=== PATIENT | male | born 1975 | race Caucasian/White ===

== ENCOUNTER 2018-06-05 11:52 | Emergency (ER) | payer OTHER ==
--- NOTE | 2018-06-05 14:15 | EDPHYS ---
Physician Documentation [facility] Name: Shawn Calderon Age: 43 yrs Sex: Male : 1975 Arrival Date: 06/05/2018 Time: 11:53 Bed 30 Private MD: Lito Mathur T ED Physician Adam Yang HPI: 06/05 14:11 This 43 yrs old Male presents to ER via Ambulatory with complaints of KIDNEY sandee STONE. 14:11 The patient complains of pain in the left mid back and right mid back. The pain does sandee not radiate. Onset: The symptoms/episode began/occurred 2 month(s) ago. Modifying factors: The symptoms are alleviated by nothing. the symptoms are aggravated by nothing. Modifying factors: The symptoms are alleviated by. Associated signs and symptoms: The patient has no apparent associated signs or symptoms. Severity of pain: At its worst the pain was moderate in the emergency department the pain has improved moderately. The patient has not experienced similar symptoms in the past. Historical: - Allergies: 12:06 No Known Allergies; hb - Home Meds: 12:06 None [Active]; hb - PMHx: 12:06 None; hb - PSHx: 12:06 Shoulder - RIGHT; hb - Immunization history:: Adult Immunizations up to date. - Social history:: Smoking status: Patient/guardian denies using tobacco, never smoked. - Ebola Screening: : No symptoms or risks identified at this time. - Family history:: not pertinent. ROS: 14:11 Constitutional: Negative for fever, chills, and weight loss, Eyes: Negative for injury, sandee pain, redness, and discharge, ENT: Negative for injury, pain, and discharge, Neck: Negative for injury, pain, and swelling, Cardiovascular: Negative for chest pain, palpitations, and edema, Respiratory: Negative for shortness of breath, cough, wheezing, and pleuritic chest pain, Abdomen/GI: Negative for abdominal pain, nausea, vomiting, diarrhea, and constipation, : Negative for injury, bleeding, discharge, and swelling, MS/Extremity: Negative for injury and deformity, Skin: Negative for injury, rash, and discoloration, Neuro: Negative for headache, weakness, numbness, tingling, and seizure, Psych: Negative for depression, anxiety, suicide ideation, homicidal ideation, and hallucinations, Allergy/Immunology: Negative for hives, rash, and allergies, Endocrine: Negative for neck swelling, polydipsia, polyuria, polyphagia, and marked weight changes, Hematologic/Lymphatic: Negative for swollen nodes, abnormal bleeding, and unusual bruising. 14:11 Back: Positive for pain at rest, flank pain, bilaterally. Exam: 14:11 Constitutional: This is a well developed, well nourished patient who is awake, alert, sandee and in no acute distress. Head/Face: Normocephalic, atraumatic. Eyes: Pupils equal round and reactive to light, extra-ocular motions intact. Lids and lashes normal. Conjunctiva and sclera are non-icteric and not injected. Cornea within normal limits. Periorbital areas with no swelling, redness, or edema. ENT: Nares patent. No nasal discharge, no septal abnormalities noted. Tympanic membranes are normal and external auditory canals are clear. Oropharynx with no redness, swelling, or masses, exudates, or evidence of obstruction, uvula midline. Mucous membranes moist. Neck: Trachea midline, no thyromegaly or masses palpated, and no cervical lymphadenopathy. Supple, full range of motion without nuchal rigidity, or vertebral point tenderness. No Meningismus. Chest/axilla: Normal chest wall appearance and motion. Nontender with no deformity. No lesions are appreciated. Cardiovascular: Regular rate and rhythm with a normal S1 and S2. No gallops, murmurs, or rubs. Normal PMI, no JVD. No pulse deficits. Respiratory: Lungs have equal breath sounds bilaterally, clear to auscultation and percussion. No rales, rhonchi or wheezes noted. No increased work of breathing, no retractions or nasal flaring. Abdomen/GI: Soft, non-tender, with normal bowel sounds. No distension or tympany. No guarding or rebound. No evidence of tenderness throughout. Male : Normal genitalia with no discharge or lesions. Skin: Warm, dry with normal turgor. Normal color with no rashes, no lesions, and no evidence of cellulitis. MS/ Extremity: Pulses equal, no cyanosis. Neurovascular intact. Full, normal range of motion. Neuro: Awake and alert, GCS 15, oriented to person, place, time, and situation. Cranial nerves II-XII grossly intact. Motor strength 5/5 in all extremities. Sensory grossly intact. Cerebellar exam normal. Normal gait. Psych: Awake, alert, with orientation to person, place and time. Behavior, mood, and affect are within normal limits. 14:11 Back: pain, that is moderate, ROM is painful, normal spinal alignment noted, CVA tenderness, is absent, vertebral tenderness, is not appreciated. Vital Signs: 12:06 BP 160 / 98; Pulse 85; Resp 16; Temp 98.2; Pulse Ox 100% on R/A; Weight 120.2 kg; hb Height 6 ft. 3 in. (190.50 cm); Pain 4/10; 13:39 BP 155 / 118 RA Sitting (auto/reg); Pulse 76; Temp 98.8(O); Pulse Ox 96% on R/A; Pain jp3 4/10; 14:27 BP 171 / 111; Pulse 84; Resp 16; Pulse Ox 99% on R/A; Pain 3/10; em 12:06 Body Mass Index 33.12 (120.20 kg, 190.50 cm) hb 13:39 4/10 pain level was after pain medication was given. Pt report 10/10 on pain prior to jp3 pain medication. MDM: 13:38 Patient medically screened. sandee 14:11 Data reviewed: vital signs, nurses notes. sandee Administered Medications: No medications were administered Disposition: 06/05/18 14:14 Discharged to Home. Impression: Hydronephrosis with renal and ureteral calculous obstruction - bilateral, intermittant , Essential (primary) hypertension. - Condition is Stable. - Discharge Instructions: Hypertension, Kidney Stones, Kidney Stones, [id number], Hydronephrosis, Hypertension, [id number]-[id number], Dietary Guidelines to Help Prevent Kidney Stones. - Prescriptions for Flomax 0.4 mg Oral Capsule, Sust. Release 24 hr - take 1 capsule by ORAL route once daily 1/2 hour following the same meal each day; 30 capsule. - Medication Reconciliation Form, Thank You Letter, Antibiotic Education, Prescription Opioid Use form. - Follow up: Lito Mathur MD; When: 1 - 2 days; Reason: Recheck today's complaints, Continuance of care, Re-evaluation by your physician. Follow up: Camelia Elder MD; When: Tomorrow; Reason: Recheck today's complaints, Continuance of care, Re-evaluation by your physician. - Problem is new. - Symptoms have improved. Signatures: Adam Yang MD MD sandee Bryce Landeros, PRICE CHANGER PRICE CHANGER em Zayda Jean, RN RN Corrections: (The following items were deleted from the chart) 14:15 14:14 06/05/2018 14:14 Discharged to Home. Impression: Hydronephrosis with renal and sandee ureteral calculous obstruction - bilateral, intermittant . Condition is Stable. Forms are Medication Reconciliation Form, Thank You Letter, Antibiotic Education, Prescription Opioid Use. Follow up: Lito Mathur; When: 1 - 2 days; Reason: Recheck today's complaints, Continuance of care, Re-evaluation by your physician. Follow up: Camelia Elder; When: Tomorrow; Reason: Recheck today's complaints, Continuance of care, Re-evaluation by your physician. Problem is new. Symptoms have improved. sandee 14:30 14:15 06/05/2018 14:14 Discharged to Home. Impression: Hydronephrosis with renal and em ureteral calculous obstruction - bilateral, intermittant ; Essential (primary) hypertension. Condition is Stable. Discharge Instructions: Kidney Stones, Kidney Stones, [id number], Hydronephrosis, Dietary Guidelines to Help Prevent Kidney Stones. Prescriptions for Flomax 0.4 mg Oral Capsule, Sust. Release 24 hr - take 1 capsule by ORAL route once daily 1/2 hour following the same meal each day; 30 capsule. and Forms are Medication Reconciliation Form, Thank You Letter, Antibiotic Education, Prescription Opioid Use. Follow up: Lito Mathur; When: 1 - 2 days; Reason: Recheck today's complaints, Continuance of care, Re-evaluation by your physician. Follow up: Camelia Elder; When: Tomorrow; Reason: Recheck today's complaints, Continuance of care, Re-evaluation by your physician. Problem is new. Symptoms have improved. sandee
--- NOTE | 2018-06-05 14:15 | ER ---
Nurse's Notes [facility] Name: Shawn Calderon Age: 43 yrs Sex: Male : 1975 Arrival Date: 06/05/2018 Time: 11:53 Bed 30 Private MD: Lito Mathur T Diagnosis: Hydronephrosis with renal and ureteral calculous obstruction-bilateral, intermittant ;Essential (primary) hypertension Presentation: 06/05 12:03 Presenting complaint: Patient states: "Dr. Mathur sent me for a CT and found I have hb kidney stones, referred me to Dr. Elder but he does not take my insurance, so he said to meet him at the ED at noon today.". Transition of care: patient was not received from another setting of care. Onset of symptoms was June 05, 2018. Risk Assessment: Do you want to hurt yourself or someone else? Patient reports no desire to harm self or others. Initial Sepsis Screen: Does the patient meet any 2 criteria? No. Patient's initial sepsis screen is negative. Does the patient have a suspected source of infection? No. Patient's initial sepsis screen is negative. Care prior to arrival: None. 12:03 Method Of Arrival: Ambulatory hb 12:03 Acuity: ANTONIETA 3 hb Historical: - Allergies: 12:06 No Known Allergies; hb - Home Meds: 12:06 None [Active]; hb - PMHx: 12:06 None; hb - PSHx: 12:06 Shoulder - RIGHT; hb - Immunization history:: Adult Immunizations up to date. - Social history:: Smoking status: Patient/guardian denies using tobacco, never smoked. - Ebola Screening: : No symptoms or risks identified at this time. - Family history:: not pertinent. Screenin:54 Abuse screen: Denies threats or abuse. Nutritional screening: No deficits noted. em Tuberculosis screening: No symptoms or risk factors identified. Fall Risk None identified. Assessment: 13:50 General: Appears uncomfortable, Behavior is cooperative, agitated, Denies fever, has em had flank pain for several months, upset because he they won't take his insurance, was told to come to the ER and Dr. Elder would see him in the ER. Pain: Complains of pain in posterior aspect of left lateral abdomen Pain currently is 3 out of 10 on a pain scale. Neuro: Level of Consciousness is awake, alert, obeys commands, Oriented to person, place, time, situation. Cardiovascular: Capillary refill < 3 seconds Patient's skin is warm and dry. Respiratory: Airway is patent Respiratory effort is even, unlabored, Respiratory pattern is regular, symmetrical. GI: Abdomen is flat, Patient currently denies nausea, vomiting. : Reports hematuria last week, denies hematuria today. EENT: No signs and/or symptoms were reported regarding the EENT system. Derm: Skin is intact, Skin is pink, warm \\T\\ dry. Musculoskeletal: Range of motion: intact in all extremities. 14:00 General: The previous assessment is accurate, call light remains within reach. . ss Vital Signs: 12:06 BP 160 / 98; Pulse 85; Resp 16; Temp 98.2; Pulse Ox 100% on R/A; Weight 120.2 kg; hb Height 6 ft. 3 in. (190.50 cm); Pain 4/10; 13:39 BP 155 / 118 RA Sitting (auto/reg); Pulse 76; Temp 98.8(O); Pulse Ox 96% on R/A; Pain jp3 4/10; 14:27 BP 171 / 111; Pulse 84; Resp 16; Pulse Ox 99% on R/A; Pain 3/10; em 12:06 Body Mass Index 33.12 (120.20 kg, 190.50 cm) hb 13:39 4/10 pain level was after pain medication was given. Pt report 10/10 on pain prior to jp3 pain medication. ED Course: 11:53 Patient arrived in ED. sb2 11:54 Lito Mathur MD is Private Physician. sb2 12:05 Triage completed. hb 12:06 Arm band placed on left wrist. hb 13:38 Adam Yang MD is Attending Physician. sandee 13:49 Bryce Landeros LVN is Primary Nurse. em 13:54 Patient has correct armband on for positive identification. Bed in low position. Call em light in reach. 13:54 No provider procedures requiring assistance completed. em 14:13 Lito Mathur MD is Referral Physician. sandee 14:14 Camelia Elder MD is Referral Physician. sandee 14:28 Patient did not have IV access during this emergency room visit. em Administered Medications: No medications were administered Outcome: 14:14 Discharge ordered by . sandee 14:28 Discharged to home ambulatory. em 14:28 Condition: good 14:28 Discharge instructions given to patient, Instructed on discharge instructions, follow up and referral plans. medication usage, Demonstrated understanding of instructions, follow-up care, medications, Prescriptions given X 1. 14:30 Patient left the ED. em Signatures: Adam Yang MD MD cha Munoz, Bryce, DRUM BUILDER DRUM BUILDER em Tatyana Gilbert RN RN ss Zayda Jean RN RN Ragini Kincaid sb2 Anmol Brown jp3
== END 2018-06-05 14:30 | disposition home or self-care (01) ==
LOC: ER 11:52
DX: N13.2 Hydronephrosis with renal and ureteral calculous obstruction (principal); I10 Essential (primary) hypertension
CPT/HCPCS: 99282

== ENCOUNTER 2018-06-06 05:54 | Day surgery (SDC) | payer OTHER ==
[2018-06-06 06:24] LABS: Absolute Lymphocytes (CBC) 2.7 K/uL (0.7-4.9); Absolute Monocytes 0.4 K/uL (0.1-1.3); Basophils % 0.4 % (0-1.3); Eosinophils % 4.8 % (0-4.4); Hematocrit 50.6 % (39.6-49.0); Lymphocytes % 36.1 % (15.3-44.8); MCH 29.2 pg (27.0-35.0); MCV 86.5 fL (80-100); MPV 8.9 fL (7.6-11.3); Monocytes % 5.7 % (3.3-12.3); RBC Red Blood Cell Count 5.85 M/uL (4.33-5.43)
[2018-06-06 06:37] LABS: Potassium 3.8 mmol/L (3.5-5.1)
--- NOTE | 2018-06-06 08:15 | EDPHYS ---
Physician Documentation [facility] Name: Shawn Calderon Age: 43 yrs Sex: Male : 1975 Arrival Date: 06/06/2018 Time: 06:00 Bed 6 Private MD: ED Physician Ben Presley HPI: 06/06 06:14 This 43 yrs old Male presents to ER via Ambulatory with complaints of surgery.snw 06:14 Onset: The symptoms/episode began/occurred 4 day(s) ago, and became persistent. snw Associated signs and symptoms: Pertinent positives: seen in ED yesterday for consult with Dr. Elder. Modifying factors: The patient symptoms are alleviated by nothing. It is unknown whether or not the patient has had similar symptoms in the past. The patient has been recently seen by a physician: Pt saw Dr. Mathur who dx renal and calculus of ureter. Right intrarenal stone is intermittently obstructive. Pt came to ED for consult with Dr. Elder. Sent for surgery for today. No orders or labs so pt signed up in ED. Labs entered and pt awaiting OR. Historical: - Allergies: 06:11 Neosporin ([id number]); lp1 - Home Meds: 06:11 None [Active]; lp1 - PMHx: 06:11 None; lp1 - PSHx: 06:11 Rotator Cuff repair; lp1 - Immunization history:: Adult Immunizations up to date. - Social history:: Smoking status: Patient/guardian denies using tobacco. - Ebola Screening: : No symptoms or risks identified at this time. ROS: 06:14 Constitutional: Negative for fever, chills, and weight loss, Eyes: Negative for injury, snw pain, redness, and discharge, ENT: Negative for injury, pain, and discharge, Neck: Negative for injury, pain, and swelling, Cardiovascular: Negative for chest pain, palpitations, and edema, Respiratory: Negative for shortness of breath, cough, wheezing, and pleuritic chest pain, Abdomen/GI: Negative for abdominal pain, nausea, vomiting, diarrhea, and constipation, : Negative for injury, bleeding, discharge, and swelling, MS/Extremity: Negative for injury and deformity, Skin: Negative for injury, rash, and discoloration, Neuro: Negative for headache, weakness, numbness, tingling, and seizure. 06:14 Back: Positive for flank pain. Exam: 06:14 Constitutional: This is a well developed, well nourished patient who is awake, alert, snw and in no acute distress. Head/Face: Normocephalic, atraumatic. Eyes: Pupils equal round and reactive to light, extra-ocular motions intact. Lids and lashes normal. Conjunctiva and sclera are non-icteric and not injected. Cornea within normal limits. Periorbital areas with no swelling, redness, or edema. ENT: Nares patent. No nasal discharge, no septal abnormalities noted. Tympanic membranes are normal and external auditory canals are clear. Oropharynx with no redness, swelling, or masses, exudates, or evidence of obstruction, uvula midline. Mucous membranes moist. Neck: Trachea midline, no thyromegaly or masses palpated, and no cervical lymphadenopathy. Supple, full range of motion without nuchal rigidity, or vertebral point tenderness. No Meningismus. Chest/axilla: Normal chest wall appearance and motion. Nontender with no deformity. No lesions are appreciated. Cardiovascular: Regular rate and rhythm with a normal S1 and S2. No gallops, murmurs, or rubs. Normal PMI, no JVD. No pulse deficits. Respiratory: Lungs have equal breath sounds bilaterally, clear to auscultation and percussion. No rales, rhonchi or wheezes noted. No increased work of breathing, no retractions or nasal flaring. Abdomen/GI: Soft, non-tender, with normal bowel sounds. No distension or tympany. No guarding or rebound. No evidence of tenderness throughout. Back: No spinal tenderness. No costovertebral tenderness. Full range of motion. Skin: Warm, dry with normal turgor. Normal color with no rashes, no lesions, and no evidence of cellulitis. MS/ Extremity: Pulses equal, no cyanosis. Neurovascular intact. Full, normal range of motion. Neuro: Awake and alert, GCS 15, oriented to person, place, time, and situation. Cranial nerves II-XII grossly intact. Motor strength 5/5 in all extremities. Sensory grossly intact. Cerebellar exam normal. Normal gait. Vital Signs: 06:13 BP 149 / 99; Pulse 82; Resp 18; Temp 98.0(O); Pulse Ox 96% on R/A; Weight 117.93 kg; lp1 Height 6 ft. 3 in. (190.50 cm); Pain 0/10; 07:41 BP 141 / 98; Pulse 82; Resp 17; Pulse Ox 96% on R/A; tw2 09:56 BP 136 / 97; Pulse 73; Resp 17; Pulse Ox 96% on R/A; tw2 06:13 Body Mass Index 32.50 (117.93 kg, 190.50 cm) lp1 MDM: 06:12 Patient medically screened. snw 08:14 Data reviewed: vital signs, nurses notes. Data interpreted: Pulse oximetry: on room air snw is 96 %. Interpretation: acceptable. Counseling: I had a detailed discussion with the patient and/or guardian regarding: the historical points, exam findings, and any diagnostic results supporting the discharge/admit diagnosis, the presence of at least one elevated blood pressure reading (>120/80) during this emergency department visit. Physician consultation: Camelia Elder MD was called at 05:45, was contacted at 05:45, regarding patient's condition, need to evaluate the patient as soon as possible. 06/06 06:03 Order name: Type And Screen; Complete Time: 07:35 bb 06/06 06:03 Order name: CBC with Diff; Complete Time: 07:02 bb 06/06 06:03 Order name: BMP; Complete Time: 06:41 bb 06/06 08:51 Order name: ABO/RH no charge; Complete Time: 08:55 EDMS 06/06 08:57 Order name: PT-INR; Complete Time: 09:55 sv 06/06 08:57 Order name: Ptt, Activated; Complete Time: 09:55 sv 06/06 06:03 Order name: EKG; Complete Time: 06:04 bb 06/06 06:03 Order name: EKG - Nurse/Tech; Complete Time: 06:26 bb 06/06 06:03 Order name: XRAY Chest (1 view); Complete Time: 09:05 bb 06/06 06:03 Order name: NPO; Complete Time: 06:14 bb 06/06 08:56 Order name: Abdomen 1 View (KUB) XRAY snw 06/06 08:57 Order name: UA MICROSCOPIC sv 06/06 09:47 Order name: Urine Dipstick--Ancillary (enter results) em1 Administered Medications: No medications were administered Disposition: 06/06/18 08:14 Hospitalization ordered by Camelia Elder for Observation. Preliminary diagnosis is Hydronephrosis with renal and ureteral calculous obstruction. - Bed requested for Operating Room. - Status is Observation. tw2 - Condition is Stable. - Problem is an acute exacerbation. - Symptoms are unchanged. UTI on Admission? No Signatures: Dispatcher [employer] EDMS Shanta Long, FAST FOODS WORKER-C FAST FOODS WORKER-Csnw Luna Cronin, RN RN bb Sanna Avila RN RN lp1 Mahsa Patel RN RN tw2 Corrections: (The following items were deleted from the chart) 09:57 08:14 Hospitalization Ordered by Camelia Elder MD for Observation. Preliminary tw2 diagnosis is Hydronephrosis with renal and ureteral calculous obstruction. Bed requested for Operating Room. Status is Observation. Condition is Stable. Problem is an acute exacerbation. Symptoms are unchanged. UTI on Admission? No. snw
--- NOTE | 2018-06-06 08:15 | ER ---
Nurse's Notes [facility] Name: Shawn Calderon Age: 43 yrs Sex: Male : 1975 Arrival Date: 06/06/2018 Time: 06:00 Bed 6 Private MD: Diagnosis: Hydronephrosis with renal and ureteral calculous obstruction Presentation: 06/06 06:08 Presenting complaint: Patient states: Scheduled for surgery this morning with Dr. Elder lp1 for lithotripsy; Told to come to ER for labs prior to surgery. Transition of care: patient was not received from another setting of care. Onset of symptoms was June 06, 2018. Risk Assessment: Do you want to hurt yourself or someone else? Patient reports no desire to harm self or others. Initial Sepsis Screen: Does the patient meet any 2 criteria? No. Patient's initial sepsis screen is negative. Does the patient have a suspected source of infection? No. Patient's initial sepsis screen is negative. Care prior to arrival: None. 06:08 Method Of Arrival: Ambulatory lp1 06:08 Acuity: ANTONIETA 3 lp1 Historical: - Allergies: 06:11 Neosporin ([id number]); lp1 - Home Meds: 06:11 None [Active]; lp1 - PMHx: 06:11 None; lp1 - PSHx: 06:11 Rotator Cuff repair; lp1 - Immunization history:: Adult Immunizations up to date. - Social history:: Smoking status: Patient/guardian denies using tobacco. - Ebola Screening: : No symptoms or risks identified at this time. Screenin:13 Abuse screen: Denies threats or abuse. Denies injuries from another. Nutritional lp1 screening: No deficits noted. Tuberculosis screening: No symptoms or risk factors identified. Fall Risk None identified. Assessment: 06:11 General: Appears in no apparent distress. Behavior is calm, cooperative, appropriate lp1 for age. Pain: Denies pain. Neuro: Level of Consciousness is awake, alert, obeys commands. Cardiovascular: Patient's skin is warm and dry. Respiratory: Respiratory effort is even, unlabored. GI: No signs and/or symptoms were reported involving the gastrointestinal system. : No signs and/or symptoms were reported regarding the genitourinary system. EENT: No signs and/or symptoms were reported regarding the EENT system. Derm: Skin is pink, warm \T\ dry. Musculoskeletal: Circulation, motion, and sensation intact. 07:42 Reassessment: Patient appears in no apparent distress at this time. Patient and/or tw2 family updated on plan of care and expected duration. Pain level reassessed. Patient is alert, oriented x 3, equal unlabored respirations, skin warm/dry/pink. 08:30 Reassessment: Dr. Elder at bedside at this time discussing POC. tw2 Vital Signs: 06:13 BP 149 / 99; Pulse 82; Resp 18; Temp 98.0(O); Pulse Ox 96% on R/A; Weight 117.93 kg; lp1 Height 6 ft. 3 in. (190.50 cm); Pain 0/10; 07:41 BP 141 / 98; Pulse 82; Resp 17; Pulse Ox 96% on R/A; tw2 09:56 BP 136 / 97; Pulse 73; Resp 17; Pulse Ox 96% on R/A; tw2 06:13 Body Mass Index 32.50 (117.93 kg, 190.50 cm) lp1 ED Course: 06:00 Patient arrived in ED. bb 06:07 Sanna Avila, RN is Primary Nurse. lp1 06:09 Triage completed. lp1 06:09 Arm band placed on. lp1 06:10 Initial lab(s) drawn, by me, sent to lab. Inserted saline lock: 20 gauge in left cc forearm, using aseptic technique. Blood collected. 06:11 [facility]C [facility]. snw 06:12 Ben Presley MD is Attending Physician. snw 06:13 Patient has correct armband on for positive identification. Pulse ox on. NIBP on. lp1 06:17 XRAY Chest (1 view) In Process Unspecified. EDMS 06:27 EKG done, by ED staff, reviewed by Shanta HELMS. cc 07:41 Primary Nurse role handed off by Sanna Avila, VIANCA tw2 07:41 Mahsa Patel RN is Primary Nurse. tw2 08:13 Camelia Elder MD is Hospitalizing Provider. snw 09:03 Patient moved to radiology via wheelchair. jb2 09:14 Abdomen 1 View (KUB) XRAY In Process Unspecified. EDMS 09:15 X-ray completed. Patient tolerated procedure well. Patient moved back from radiology. jb2 09:56 No provider procedures requiring assistance completed. Patient admitted, IV remains in tw2 place. Administered Medications: No medications were administered Outcome: 08:14 Decision to Hospitalize by Provider. snw 09:56 Admitted to OR accompanied by nurse, via wheelchair, Other VIANCA Johnson tw2 09:56 Condition: stable 09:56 Instructed on the need for admit. 09:57 Patient left the ED. tw2 Signatures: Dispatcher [employer] EDMS Shanta Long, PSYCH TECH-C PSYCH TECH-Csnw Sunday Dejesus jb2 Luna Cronin, RN RN bb Lashonda Woodson Laura, RN RN lp1 Mahsa Patel, RN RN tw2
--- NOTE | 2018-06-06 09:01 | RAD REPORT ---
EXAM DESCRIPTION: Nat Single View06/06/2018 6:17 am CLINICAL HISTORY: Preop for right ureteral stent placement COMPARISON: none FINDINGS: The lungs appear clear of acute infiltrate. The heart is normal size IMPRESSION: No acute abnormalities displayed
[2018-06-06 09:55] LABS: Protime INR 1.03
[2018-06-06] MEDS ORDERED: Ringers Lactate 1,000 ML IV ONE ×2 (09:57→12:01)
[2018-06-06 09:58] LABS: Urine Blood 3+ (NEG); Urine Glucose NEGATIVE (NEG); Urine Protein 2+ (NEG); Urine Specific Gravity >1.030 (1.005-1.030); Urine pH 5.5 (5.0-7.0)
[2018-06-06] MEDS ORDERED: GENTAMICIN 100 MG/100 ML BAG 100 MG/100 ML BAG IV ONE (10:09)
[2018-06-06] MEDS ORDERED: FENTANYL CITR 100 MCG/2 ML ONE (10:10)
[2018-06-06] MEDS ORDERED: PROPOFOL 200 MG/20 ML VIAL IV ONE ×2 (10:10→11:19)
[2018-06-06] MEDS ORDERED: LIDOCAINE 2% MPF 5 ML VIAL ONE (10:10)
[2018-06-06] MEDS ORDERED: MIDAZOLAM HCL 2 MG/2 ML INJ ONE (10:10)
[2018-06-06] MEDS ORDERED: ONDANSETRON 4 MG/2 ML VIAL ONE (10:11)
[2018-06-06 10:32] LABS: Urine Bacteria <20 /HPF (NONE SEEN); Urine Culture Reflex Order REFLEXED; Urine Mucus 2+ /HPF (NONE SEEN); Urine RBC 20-50 /HPF (NONE SEEN)
[2018-06-06 10:33] LABS: Urine Amorphous Sediment 1+ /HPF (NONE SEEN)
--- NOTE | 2018-06-06 10:46 | RAD REPORT ---
EXAM DESCRIPTION: RAD - Abdomen 1 View (KUB) - 06/06/2018 9:14 am CLINICAL HISTORY: ICD N 20.0 FINDINGS: The bowel gas pattern is unremarkable. An approximately 20 millimeter calculus is present within the right renal pelvis.
[2018-06-06] MEDS ORDERED: Mastisol Adhesive Liq ONE (11:27)
[2018-06-06] MEDS ORDERED: FUROSEMIDE 20 MG/ 2ML VIAL ONE (11:42)
[2018-06-06] MEDS ORDERED: EPHEDRINE SULF 50 MG/10 ML SYR ONE (11:54)
--- NOTE | 2018-06-06 12:14 | EKG ---
Test Date: 2018-06-06 Test Time: 06:20:44 Paraprofessional Education Assistant: ALEJANDRO MEASUREMENT RESULTS: Intervals: Rate: 83 CA: 162 QRSD: 90 QT: 364 QTc: 427 [place]: P: 37 CA: 162 QRS: 67 T: 20 INTERPRETIVE STATEMENTS: Normal sinus rhythm Possible Inferior infarct, age undetermined Possible Anterior infarct, age undetermined Abnormal ECG No previous ECG available for comparison Electronically Signed On 06-06-18 12:11:52 CDT by Fred Mitchell
[2018-06-06] MEDS ORDERED: MEPERIDINE HCL 25 MG/0.5 ML ONE (12:20)
[2018-06-06] MEDS ORDERED: MEPERIDINE HCL 50 MG/ML AMP ONE (12:30)
--- NOTE | 2018-06-06 12:42 | CON ---
History Of Present Illness: Mr. Calderon is an interesting 43-year-old nilson, who was sent to my office by Dr. Mathur to evaluate for acute and chronic flank pain with a diagnosis of for bilateral kidney stones. However, because some out of network issues he did not want an office visit so he ended up going to ER. However, did not want to stay overnight to be admitted for lithotripsy the next morning. He returned to ER this am. The CT does show a 5 mm and 3 mm stone in the left UVJ causing hydronephrosis and a 17 mm stone in the renal pelvis causing hydronephrosis. The plan is to do Emergent cysto, ureteroscopy, stone extraction on the left and bilateral stent placement and do a right ESWL while he is here and send him home today. 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 HE says he drink lots of water. Allergies: NO KNOWN DRUG ALLERGIES. Home Medications: None. Past Medical History: None. Past Surgical History: Right shoulder surgery.. Immunizations: Up to date. Social History: Smoking status, none. Family History: Not pertinent. Review of Systems: Ten-point review of systems essentially normal. Physical Examination: Vital Signs: Afebrile. Stable. GENERAL appearance: no acute distress. He is alert and oriented x3. HEENT: Atraumatic, normocephalic . Lungs: Clear. Abdomen: Soft, nontender. Extremities: Legs; normal range of motion. : Phallus circ, Testis bilaterally descended. KINGS : Deffered. Laboratory Review: CBC, chem 7 review. UA, micro pending. EKG pending. Assessment: Two stones at the left ureterovesical junction and a 17 mm stone right renal pelvis. Plan: Emergent Cystoscopy, ureteroscopy, extraction of stones in the left, stent placement on the left stent placement, stent placement the right, and ESWL on the right. I reviewed all the general information, alternatives, and risks, and the patient wishes to proceed. He knows that I have to add him on to be scheduled today. I am not sure what time he will go. We will try to do in between ESWLs today. We can then send him home as outpatient and then follow up with me in the office. MANUELA/CESARIO Voice ID: [id number] Report ID: [id number] MTDD
--- NOTE | 2018-06-06 13:31 | RAD REPORT ---
EXAM DESCRIPTION: RAD - Urography Retrograde - 06/06/2018 1:23 pm CLINICAL HISTORY: Bilateral ureteral stent placement COMPARISON: None. FINDINGS: Fluoroscopic assisted placement of bilateral ureteral stents performed. Final images show the bilateral ureteral stents in place. No suspicious or unexpected findings. Assessment is limited w hen only selected images are available. Fluoro time was 2.7 minutes. IMPRESSION: Fluoroscopic assisted placement of bilateral ureteral stents as detailed.
== END 2018-06-06 14:09 | disposition home or self-care (01) ==
LOC: ER 05:54 → DS 07:00
PROVIDERS: ATTEND Urology
PROC: BT14YZZ Fluoroscopy of Kidneys, Ureters and Bladder using Other Contrast (ICD-10-PCS; 2018-06-06)
PROC: 0TC78ZZ Extirpation of Matter from Left Ureter, Via Natural or Artificial Opening Endoscopic (ICD-10-PCS; principal; 2018-06-06 15:15)
PROC: 0T778DZ Dilation of Left Ureter with Intraluminal Device, Via Natural or Artificial Opening Endoscopic (ICD-10-PCS; 2018-06-06 15:15)
DX: N13.2 Hydronephrosis with renal and ureteral calculous obstruction (principal); M54.5 Low back pain; Q62.39 Other obstructive defects of renal pelvis and ureter
CPT/HCPCS: 36415; 50590; 71045; 74018; 74420; 80048; 81003; 81015; 82360; 85025; 85610; 85730; 86850; 86900; 86901; 87086; 87088; 88300; 93005; 99285; J1580; J1940; J2175; J2250; J2405; J3010; Q9967

== ENCOUNTER 2020-09-26 08:36 | Inpatient (IN) | payer OTHER ==
--- OUTSIDE RECORDS SUMMARY | 2020-09-26 09:06 | XMS REPORT | Continuity of Care Document ---
:1975 Author Organization [facility] t Address [facility] [place] [address] [place] [id number] Care Team Providers Name Role Phone Unavailable Unavailable Unavailable Payers Payer Name Policy Type Policy Number Effective Date Expiration Date S ource Problems This patient has no known problems. Allergies, Adverse Reactions, Alerts Allergy Allergy Status Severity Reaction(s) Onset Inactive Treating Comm ents Source Name Type Date Date Clinician JAYA KAPLAN Active [place] [facility] [place] 00:00: d 00 [facility] Medications This patient has no known medications. Procedures This patient has no known procedures. Results This patient has no known results.
[2020-09-26 09:41] LABS: Absolute Lymphocytes (CBC) 1.6 K/uL (0.7-4.9); Basophils % 0.5 % (0-1.3); Hematocrit 45.7 % (39.6-49.0); Lymphocytes % 7.9 % (15.3-44.8); MPV 9.1 fL (7.6-11.3); RBC Red Blood Cell Count 5.37 M/uL (4.33-5.43)
[2020-09-26] MEDS ORDERED: NA CHLORIDE 0.9% 1,000 ML ONE ×2 (09:48→09:49)
[2020-09-26] MEDS ORDERED: ONDANSETRON 4 MG/2 ML VIAL ONE (09:49)
[2020-09-26] MEDS ORDERED: CIPROFLOXACIN 400mg IV 400 MG/200 ML BAG IV ONE (09:49)
[2020-09-26 09:54] LABS: Urine Blood TRACE (NEG); Urine Glucose NEGATIVE (NEG); Urine Protein TRACE (NEG)
[2020-09-26 09:57] LABS: Albumin 3.7 g/dL (3.4-5.0); Bilirubin Direct 0.3 mg/dL (0-0.2); Bilirubin Total 1.3 mg/dL (0.2-1.0); Potassium 3.8 mmol/L (3.5-5.1); Protein, Total 7.5 g/dL (6.4-8.2)
--- NOTE | 2020-09-26 10:05 | RAD REPORT ---
EXAM DESCRIPTION: CT - Abdomen Pelvis W Contrast - 09/26/2020 9:41 am CLINICAL HISTORY: ABD PAIN COMPARISON: Stone Protocol dated 06/02/2018 TECHNIQUE: Biphasic, helical CT imaging of the abdomen and pelvis was performed following 100 ml non -ionic IV contrast. No oral contrast administered. All CT scans are performed using dose optimization technique as appropriate and may include automated exposure control or mA/KV adjustment according to patient size. FINDINGS: No suspicious findings in the lung bases. Liver shows borderline to mild fatty infiltration. No focal liver lesion. No portal vein abnormality identified. Spleen and pancreas show no suspicious findings. Gallbladder and biliary tree are also wi thout suspicious finding. Gallstones can be occult on CT imaging. Symmetric renal function is seen with no hydronephrosis or suspicious renal mass. No pyelonephritis o r acute parenchymal process. Urinary bladder is tightly contracted. No prostate gland abnormality. No adrenal abnormalities. No gastric abnormality. No dilated small bowel loops. There are several mildly prominent small bowel loops that are likely a secondary response to subsequently detailed colon finding. No appendicitis fi ndings. From cecum through descending colon no acute or active colon process seen. There is minimal d escending colon diverticulosis. A prominent sigmoid diverticulosis pattern is present. Patient has ed ematous/inflammatory stranding in the surrounding fatty tissues with a trace amount of free fluid in the pelvis. A few punctate air densities are present in the fat superior to the involved sigmoid colo n. No distant free air. No pneumatosis. No abscess or drainable fluid collection. No mass or bulky lymphadenopathy. Fat only umbilical hernia is present approximately 3 cm in size. No active process. Patient has fat only left inguinal hernia. No suspicious bony findings. IMPRESSION: Mild to moderate acute sigmoid diverticulitis. There is contained or micro perforation a long the superior aspect of the involved sigmoid colon. The extraluminal free air is immediately adjacent to the involved colon. No abscess or drainable flui d collection. No distant free air. Borderline to mild fatty infiltration of the liver.
[2020-09-26 10:08] LABS: Blood Morphology Comment NOT SEEN (NOT SEEN); Platelet Estimate ADEQ
--- NOTE | 2020-09-26 10:24 | EDPHYS ---
Physician Documentation [facility] Name: Shawn Calderon Age: 45 yrs Sex: Male : 1975 Arrival Date: 09/26/2020 Time: 08:41 Bed 18 Private MD: ED Physician Adam Yang HPI: 09/26 09:09 This 45 yrs old Male presents to ER via Ambulatory with complaints of sandee Abdominal Pain. 09:09 The patient presents with abdominal pain in the lower abdomen. Onset: The sandee symptoms/episode began/occurred yesterday. The symptoms do not radiate. Associated signs and symptoms: none. The symptoms are described as constant, dull. Modifying factors: The symptoms are alleviated by nothing, the symptoms are aggravated by nothing. Severity of pain: At its worst the pain was mild moderate in the emergency department the pain is unchanged. The patient has not experienced similar symptoms in the past. Historical: - Allergies: 09:03 Neosporin ([id number]); iw - Home Meds: 09:03 None [Active]; iw - PMHx: 09:03 Kidney stones; iw - PSHx: 09:03 right shoulder; iw - Immunization history:: Adult Immunizations. - Family history:: not pertinent. ROS: 09:09 Constitutional: Negative for fever, chills, and weight loss, Eyes: Negative for injury, sandee pain, redness, and discharge, ENT: Negative for injury, pain, and discharge, Neck: Negative for injury, pain, and swelling, Cardiovascular: Negative for chest pain, palpitations, and edema, Respiratory: Negative for shortness of breath, cough, wheezing, and pleuritic chest pain, Back: Negative for injury and pain, : Negative for injury, bleeding, discharge, and swelling, MS/Extremity: Negative for injury and deformity, Skin: Negative for injury, rash, and discoloration, Neuro: Negative for headache, weakness, numbness, tingling, and seizure, Psych: Negative for depression, anxiety, suicide ideation, homicidal ideation, and hallucinations, Allergy/Immunology: Negative for hives, rash, and allergies, Endocrine: Negative for neck swelling, polydipsia, polyuria, polyphagia, and marked weight changes, Hematologic/Lymphatic: Negative for swollen nodes, abnormal bleeding, and unusual bruising. 09:09 Abdomen/GI: Positive for abdominal pain, of the right lower quadrant and left lower quadrant. Exam: 09:09 Constitutional: This is a well developed, well nourished patient who is awake, alert, sandee and in no acute distress. Head/Face: Normocephalic, atraumatic. Eyes: Pupils equal round and reactive to light, extra-ocular motions intact. Lids and lashes normal. Conjunctiva and sclera are non-icteric and not injected. Cornea within normal limits. Periorbital areas with no swelling, redness, or edema. ENT: Nares patent. No nasal discharge, no septal abnormalities noted. Tympanic membranes are normal and external auditory canals are clear. Oropharynx with no redness, swelling, or masses, exudates, or evidence of obstruction, uvula midline. Mucous membranes moist. Neck: Trachea midline, no thyromegaly or masses palpated, and no cervical lymphadenopathy. Supple, full range of motion without nuchal rigidity, or vertebral point tenderness. No Meningismus. Chest/axilla: Normal chest wall appearance and motion. Nontender with no deformity. No lesions are appreciated. Cardiovascular: Regular rate and rhythm with a normal S1 and S2. No gallops, murmurs, or rubs. Normal PMI, no JVD. No pulse deficits. Respiratory: Lungs have equal breath sounds bilaterally, clear to auscultation and percussion. No rales, rhonchi or wheezes noted. No increased work of breathing, no retractions or nasal flaring. Back: No spinal tenderness. No costovertebral tenderness. Full range of motion. Male : Normal genitalia with no discharge or lesions. Skin: Warm, dry with normal turgor. Normal color with no rashes, no lesions, and no evidence of cellulitis. MS/ Extremity: Pulses equal, no cyanosis. Neurovascular intact. Full, normal range of motion. Neuro: Awake and alert, GCS 15, oriented to person, place, time, and situation. Cranial nerves II-XII grossly intact. Motor strength 5/5 in all extremities. Sensory grossly intact. Cerebellar exam normal. Normal gait. Psych: Awake, alert, with orientation to person, place and time. Behavior, mood, and affect are within normal limits. 09:09 Abdomen/GI: Inspection: distension, Bowel sounds: active, all quadrants, Palpation: moderate abdominal tenderness, in the suprapubic area, right lower quadrant and left lower quadrant, Liver: no appreciated palpable abnormalities, Hernia: not appreciated. Vital Signs: 09:00 BP 143 / 101; Pulse 101; Resp 16 S; Temp 98.5; Pulse Ox 98% on R/A; Weight 115.67 kg; iw Height 6 ft. 3 in. (190.50 cm); Pain 5/10; 10:00 BP 147 / 74; Pulse 95; Resp 17; Pulse Ox 97% ; jl7 11:30 BP 129 / 90; Pulse 91; Resp 17; Pulse Ox 96% ; jl7 13:00 BP 141 / 94; Pulse 94; Resp 17; Pulse Ox 98% ; jl7 14:30 BP 117 / 84; Pulse 90; Resp 17; Pulse Ox 98% ; jl7 09:00 Body Mass Index 31.87 (115.67 kg, 190.50 cm) iw MDM: 08:55 Patient medically screened. [facility] 09:12 Differential diagnosis: cholecystitis, Cholelithiasis, diverticulitis, Mesenteric sandee ischemia or infarction, non-specific abd pain, pancreatitis, Prostatitis, Pyelonephritis, Ureterolithiasis, urinary tract infection. Data reviewed: vital signs, nurses notes, lab test result(s), radiologic studies, CT scan. Data interpreted: manager security: rate is 101 beats/min, rhythm is regular, Pulse oximetry: on room air is 98 %. Counseling: I had a detailed discussion with the patient and/or guardian regarding: the historical points, exam findings, and any diagnostic results supporting the discharge/admit diagnosis, lab results, radiology results. 09/26 08:54 Order name: Basic Metabolic Panel; Complete Time: 10:17 sandee 09/26 08:54 Order name: CBC with Diff; Complete Time: 10: sandee 09/26 08:54 Order name: Hepatic Function; Complete Time: 10:17 sandee 09/26 08:54 Order name: Lipase; Complete Time: 10:17 sandee 09/26 09:09 Order name: Urine Culture [facility] 09/26 09:11 Order name: Urine Dipstick--Ancillary (enter results); Complete Time: 10:17 eb 09/26 09:09 Order name: CT Abd/Pelvis - IV Contrast Only; Complete Time: 10:17 sandee 09/26 10:08 Order name: Manual Differential; Complete Time: 10:17 EDMS 09/26 11:30 Order name: CREATININE WHOLE BLOOD [facility] 09/26 12:31 Order name: Lactate [facility] 09/26 08:54 Order name: IV Saline Lock; Complete Time: 11:15 [facility] 09/26 08:54 Order name: Labs collected and sent; Complete Time: 11:15 [facility] 09/26 08:55 Order name: Urine Dipstick-Ancillary (obtain specimen); Complete Time: 11:14 [facility] Administered Medications: 09:50 Drug: NS 0.9% 1000 ml Route: IV; Rate: 1 bolus; Site: left antecubital; jl7 10:50 Follow up: Response: No adverse reaction; IV Status: Completed infusion; IV Intake: jl7 1000ml 09:50 Drug: Cipro 400 mg Volume: 200 ml; Route: IVPB; Infused Over: 60 mins; Site: left jl7 antecubital; 10:50 Follow up: Response: No adverse reaction; IV Status: Completed infusion jl7 11:14 Not Given (Patient Refused): Zofran (Ondansetron) 4 mg IVP once; over 2 minutes jl7 11:14 Drug: Zosyn 3.375 grams Route: IVPB; Infused Over: 60 mins; Site: left antecubital; jl7 12:15 Follow up: IV Status: Completed infusion jl7 Disposition: 09/26/20 10:23 Hospitalization ordered by Pete Velasquez for Inpatient Admission. Preliminary diagnosis are Diverticular disease of intestine, Diverticulitis of large intestine with perforation and abscess without bleeding, Elevated white blood cell count. - Bed requested for Telemetry/MedSurg (Inpatient). - Status is Inpatient Admission. jl7 - Condition is Fair. - Problem is new. - Symptoms are unchanged. Signatures: Dispatcher [employer] [facility] Adam Yang MD MD cha Williams, Irene RN RN iw Albert Doll RN RN jl7 Corrections: (The following items were deleted from the chart) 13:56 10:23 Hospitalization Ordered by Pete Velasquez MD for Inpatient Admission. Preliminary diagnosis is Diverticular disease of intestine; Diverticulitis of large intestine with perforation and abscess without bleeding; Elevated white blood cell count. Bed requested for Telemetry/MedSurg (Inpatient). Status is Inpatient Admission. Condition is Fair. Problem is new. Symptoms are unchanged. [facility] 15:17 13:56 09/26/2020 10:23 Hospitalization Ordered by Pete Velasquez MD for Inpatient jl7 Admission. Preliminary diagnosis is Diverticular disease of intestine; Diverticulitis of large intestine with perforation and abscess without bleeding; Elevated white blood cell count. Bed requested for Telemetry/MedSurg (Inpatient). Status is Inpatient Admission. Condition is Fair. Problem is new. Symptoms are unchanged. iw
--- NOTE | 2020-09-26 10:24 | ER ---
Nurse's Notes [facility] Name: Shawn Calderon Age: 45 yrs Sex: Male : 1975 Arrival Date: 09/26/2020 Time: 08:41 Bed 18 Private MD: Diagnosis: Diverticular disease of intestine;Diverticulitis of large intestine with perforation and abscess without bleeding;Elevated white blood cell count Presentation: 09/26 09:00 Chief complaint: Patient states: lower abd pain since yesterday, denies urinary iw symptoms, no vomiting, was constipated for a couple days, did an enema last night but just had a lot of gas. Coronavirus screen: At this time, the client does not indicate any symptoms associated with coronavirus-19. Ebola Screen: Patient negative for fever greater than or equal to 101.5 degrees Fahrenheit, and additional compatible Ebola Virus Disease symptoms Patient denies exposure to infectious person. Patient denies travel to an Ebola-affected area in the 21 days before illness onset. No symptoms or risks identified at this time. Initial Sepsis Screen: Does the patient meet any 2 criteria? No. Patient's initial sepsis screen is negative. Does the patient have a suspected source of infection? No. Patient's initial sepsis screen is negative. Risk Assessment: Do you want to hurt yourself or someone else? Patient reports no desire to harm self or others. Onset of symptoms was September 25, 2020. 09:00 Method Of Arrival: Ambulatory iw 09:00 Acuity: ANTONIETA 3 iw Historical: - Allergies: 09:03 Neosporin ([id number]); iw - Home Meds: 09:03 None [Active]; iw - PMHx: 09:03 Kidney stones; iw - PSHx: 09:03 right shoulder; iw - Immunization history:: Adult Immunizations. - Family history:: not pertinent. Screenin:00 Abuse screen: Denies threats or abuse. Denies injuries from another. Nutritional jl7 screening: No deficits noted. Tuberculosis screening: No symptoms or risk factors identified. Fall Risk IV access (20 points). Total Thomas Fall Scale indicates No Risk (0-24 pts). Assessment: 09:00 General: Appears in no apparent distress. uncomfortable, Behavior is calm, cooperative, jl7 appropriate for age. Pain: Complains of pain in left lower quadrant and right lower quadrant Pain currently is 5 out of 10 on a pain scale. Neuro: Level of Consciousness is awake, alert, obeys commands, Oriented to person, place, time, situation. Cardiovascular: Patient's skin is warm and dry. Respiratory: Airway is patent Respiratory effort is even, unlabored, Respiratory pattern is regular, symmetrical. GI: Abdomen is non-distended, Reports lower abdominal pain, Patient currently denies diarrhea, nausea, vomiting. : No signs and/or symptoms were reported regarding the genitourinary system. Derm: Skin is pink, warm \T\ dry. 10:00 Reassessment: Patient appears in no apparent distress at this time. No changes from jl7 previously documented assessment. Patient and/or family updated on plan of care and expected duration. Pain level reassessed. Patient is alert, oriented x 3, equal unlabored respirations, skin warm/dry/pink. 11:00 Reassessment: Patient appears in no apparent distress at this time. No changes from jl7 previously documented assessment. Patient and/or family updated on plan of care and expected duration. Pain level reassessed. Patient is alert, oriented x 3, equal unlabored respirations, skin warm/dry/pink. Vital Signs: 09:00 BP 143 / 101; Pulse 101; Resp 16 S; Temp 98.5; Pulse Ox 98% on R/A; Weight 115.67 kg; iw Height 6 ft. 3 in. (190.50 cm); Pain 5/10; 10:00 BP 147 / 74; Pulse 95; Resp 17; Pulse Ox 97% ; jl7 11:30 BP 129 / 90; Pulse 91; Resp 17; Pulse Ox 96% ; jl7 13:00 BP 141 / 94; Pulse 94; Resp 17; Pulse Ox 98% ; jl7 14:30 BP 117 / 84; Pulse 90; Resp 17; Pulse Ox 98% ; jl7 09:00 Body Mass Index 31.87 (115.67 kg, 190.50 cm) ED Course: 08:41 Patient arrived in ED. ag5 08:53 Adam Yang MD is Attending Physician. sandee 09:03 Triage completed. iw 09:03 Arm band placed on. iw 09:08 Albert Doll RN is Primary Nurse. jl7 09:30 Patient has correct armband on for positive identification. Bed in low position. Call [facility] light in reach. Side rails up X 1. Pulse ox on. NIBP on. 09:30 Initial lab(s) drawn, by me, sent to lab. Inserted saline lock: 20 gauge in left jl7 antecubital area, using aseptic technique. Blood collected. 09:40 CT Abd/Pelvis - IV Contrast Only In Process Unspecified. EDWV 10:20 Pete Vealsquez MD is Hospitalizing Provider. [facility] 14:17 Lactate Sent. [facility] 15:01 No provider procedures requiring assistance completed. Patient admitted, IV remains in jl7 place. intact, No redness/swelling at site. Administered Medications: 09:50 Drug: NS 0.9% 1000 ml Route: IV; Rate: 1 bolus; Site: left antecubital; [facility] 10:50 Follow up: Response: No adverse reaction; IV Status: Completed infusion; IV Intake: jl7 1000ml 09:50 Drug: Cipro 400 mg Volume: 200 ml; Route: IVPB; Infused Over: 60 mins; Site: left jl7 antecubital; 10:50 Follow up: Response: No adverse reaction; IV Status: Completed infusion jl 11:14 Not Given (Patient Refused): Zofran (Ondansetron) 4 mg IVP once; over 2 minutes jl7 11:14 Drug: Zosyn 3.375 grams Route: IVPB; Infused Over: 60 mins; Site: left antecubital; [facility] 12:15 Follow up: IV Status: Completed infusion [facility] Intake: 10:50 IV: 1000ml; Total: 1000ml. [facility] Outcome: 10:23 Decision to Hospitalize by Provider. [facility] 15:01 Admitted to Med/surg accompanied by tech, via wheelchair, room 206. [facility] 15:01 Condition: stable 15:01 Discharge instructions given to patient, Instructed on the need for admit, Demonstrated understanding of instructions. 15:17 Patient left the ED. [facility] Signatures: Dispatcher [employer] EDAdam Magaña MD MD cha Williams, Irene, RN Albert Smith RN RN jl7 Gaskin, Ajare ag5 Huhn, Donald [facility]
[2020-09-26] MEDS ORDERED: PIPER/TAZO/NS 3.375gm 3.375 GM/100 ML BAG ONE (10:53)
--- NOTE | 2020-09-26 12:31 | P.HP ---
Certification for Inpatient Patient admitted to: Inpatient With expected LOS: >2 Midnights Practitioner: I am a practitioner with admitting privileges, knowledge of patient current condition, hospital course, and medical plan of care. Services: Services provided to patient in accordance with Admission requirements found in Title 42 Section 412.3 of the Code of Federal Regulations Patient History Date of Service: 09/26/20 Reason for admission: Acute sigmoid diverticulitis, microperforation History of Present Illness: 45-year-old male, presented to the ED due to acute onset of severe lower abdominal pain. Symptoms began yesterday. Described as constant and dull. Alleviated/aggravated by nothing in particular. He has never had anything like this before. Mild nausea, no vomiting. Denies fevers/chills, No diarrhea, no blood in the stool, no dysuria. Workup notable for leukocytosis (20), normal lipase, normal LFTs, no lactic acidosis. CT abdomen/pelvis concerning for microperforation acute sigmoid diverticulitis. General surgery was consulted who recommended medical management at this time Allergies Neosporin ([id number] Allergy (Uncoded 06/06/18 10:01) Unknown Home medications list reviewed: Yes Home Medications: NK [No Home Meds] 09/26/20 - Past Medical/Surgical History Diabetic: No -: Kidney stones -: Right shoulder surgery -: Knee surgery - Family History Mother -: Cancer Notes: breast - Social History Smoking Status: Never smoker Alcohol use: No Place of Residence: Home Review of Systems 10-point ROS is otherwise unremarkable Physical Examination - Physical Exam General: Alert, In no apparent distress, Oriented x3, Other (Somewhat uncomfortable appearing) HEENT: Sclerae nonicteric Respiratory: Clear to auscultation bilaterally Cardiovascular: No edema, Regular rate/rhythm Gastrointestinal: Soft and benign, Non-distended, Tenderness (Mild in lower abdomen (suprapubic, LLQ)) Musculoskeletal: No tenderness Integumentary: No rashes Neurological: Normal speech, Normal affect - Studies Laboratory Data (last 24 hrs) 09/26/20 09:27: WBC 20.4 H*, Hgb 15.2, Hct 45.7, Plt Count 234 09/26/20 09:27: Sodium 138, Potassium 3.8, BUN 16, Creatinine 1.16, Glucose 122 H, Total Bilirubin 1.3 H, AST 20, ALT 37, Alkaline Phosphatase 74, Lipase 27 L Assessment and Plan - Advance Directives Does patient have a Living Will: No Does patient have a Durable POA for Healthcare: No Physician Review Additional Text: Acute sigmoid diverticulitis, with microperforation h/o kidney stones -NPO, IV fluids, continue IV Zosyn -serial abdominal exams -general surgery consulted -morphine for pain control -trend labs Dispo: pending improvement, anticipate hospitalization > 2 days Time Spent Managing Pts Care (In Minutes): 55
--- NOTE | 2020-09-26 14:10 | CON ---
Date of Consultation: 09/26/2020 Reason: Abdominal pain. History Of Present Illness: The patient is a 45-year-old gentleman who comes in with 1-day history o f lower abdominal pain. He has had some constipation. No diarrhea. No blood in his stool. No dysu lacey or hematuria. No sore throat, runny nose, cough, headaches, or dizziness. No chest pain. No fe matthew or chills. Mild nausea but no vomiting. Review of Systems: Otherwise unremarkable. Patient never had this symptom before and has never had colonoscopy. There is no family history of colorectal malignancy. Past Medical History: Medical history significant for kidney stones. Past Surgical History: Right shoulder surgery and left knee surgery. Allergies: NEOSPORIN. Social History: The patient does not smoke. Drinks occasionally. Family History: Significant for breast cancer in the mother. Physical Examination: Vital Signs: Stable. He is afebrile. General: He is awake, alert, and oriented x3. Head and Neck: Cranial 2 through 12 grossly within normal limits. No neck masses. No JVD. Throat clear. Neck is supple. Chest: Clear. Heart: S1 and S2. Abdomen: Soft, nondistended. Positive bowel sounds. Positive left lower quadrant tenderness and johnson prapubic tenderness. Minimal rebound, rigidity. No guarding. Extremities: Adequately perfused. Nontender. Neuro: Nonfocal. Diagnostic Data: CT of the abdomen and pelvis reviewed and shows mild to moderate acute sigmoid dive rticulitis. There is microperforation along the superior aspect involving the sigmoid colon. Extral uminal free air is immediately adjacent to the involved colon. No abscess or drainable fluid. No di stant free air is noted. Borderline to mild fatty infiltration of the liver and patient also has an umbilical and left inguinal hernia. Laboratory Data: Significant for white count of 20.4 with a left shift. Chemistry reviewed. Assessment: A 45-year-old gentleman with acute sigmoid diverticulitis. Recommendation: N.p.o., IV fluid, IV antibiotics. Serial abdominal exam. We will get dietary consu ltation. Once patient's white count improves, pain is better, he can be started on clear liquids. A dvance the appropriate diet and then can be discharged on oral antibiotics for 2 weeks following whic h he should follow up with his GI doctor for a colonoscopy in 4 to 6 weeks and after that determinati on will be made whether the patient would benefit from a segmental colon resection given his young ag e. I would recommend the patient to see a colorectal specialist regarding those options. MITRA/CESARIO Voice ID: [id number] Report ID: [id number]
[2020-09-26] MEDS ORDERED: MORPHINE 2 MG/ML SYR IV PRN (15:13)
[2020-09-26] MEDS ORDERED: ONDANSETRON 4 MG/2 ML VIAL IV PRN (15:13)
[2020-09-26] MEDS: NA CHLORIDE 0.9% 1,000 ML IV SCH (16:30)
[2020-09-26 17:47] VITALS: BMI 37.1
[2020-09-26] MEDS: PIPER/TAZO/NS 3.375gm 3.375 GM/100 ML BAG IVPB SCH (17:56)
[2020-09-27] MEDS: NA CHLORIDE 0.9% 1,000 ML IV SCH ×4 (00:02→20:18)
[2020-09-27] MEDS: PIPER/TAZO/NS 3.375gm 3.375 GM/100 ML BAG IVPB SCH ×3 (00:10→16:41)
[2020-09-27 06:28] LABS: Absolute Lymphocytes (CBC) 1.2 K/uL (0.7-4.9); Basophils % 0.1 % (0-1.3); Hematocrit 40.9 % (39.6-49.0); Lymphocytes % 6.8 % (15.3-44.8); MPV 9.5 fL (7.6-11.3); RBC Red Blood Cell Count 4.83 M/uL (4.33-5.43)
[2020-09-27 06:37] LABS: Protime INR 1.33
[2020-09-27 07:07] LABS: Albumin 2.8 g/dL (3.4-5.0); Bilirubin Total 1.4 mg/dL (0.2-1.0); Magnesium 2.1 mg/dL (1.8-2.4); Potassium 3.7 mmol/L (3.5-5.1); Protein, Total 6.7 g/dL (6.4-8.2)
--- NOTE | 2020-09-27 08:07 | P.PN ---
Subjective Date of Service: 09/27/20 Chief Complaint: Acute sigmoid diverticulitis, microperforation Subjective: Improving (Reports slight improvement, however continue with pain, did not sleep well last night, pain medication not lasting long enough. No nausea/vomiting, had loose stool last night, no blood) Review of Systems 10-point ROS is otherwise unremarkable Physical Examination - Vital Signs Temperature: 97.4 F Blood Pressure: 145/78 Pulse: 110 Respirations: 18 Pulse Ox (%): 96 - Physical Exam General: Alert, Other (uncomfortable) HEENT: Sclerae nonicteric Respiratory: Clear to auscultation bilaterally Cardiovascular: No edema, Regular rate/rhythm Gastrointestinal: Soft and benign, Non-distended, Tenderness (suprapubic / LLQ) Musculoskeletal: No tenderness Integumentary: No rashes Neurological: Normal speech, Normal affect - Studies Laboratory Data (last 24 hrs) 09/26/20 09:27: WBC 20.4 H*, Hgb 15.2, Hct 45.7, Plt Count 234 09/26/20 09:27: Sodium 138, Potassium 3.8, BUN 16, Creatinine 1.16, Glucose 122 H, Total Bilirubin 1.3 H, AST 20, ALT 37, Alkaline Phosphatase 74, Lipase 27 L Assessment & Plan Physician Review Additional Text: Acute sigmoid diverticulitis, with microperforation h/o kidney stones -continue NPO, IV fluids, continue IV Zosyn -serial abdominal exams -remains afebrile -general surgery consulted - will need oral antibiotics for 2 weeks, and f/u with GI for c-scope in 4-6 weeks. may need to f/u with colorectal specialist if determined he would benefit from segmental colon resection -morphine for pain control, change to q3hr -WBC slightly decreased today Dispo: slight improvement, anticipate dc home in ~48hrs Time Spent Managing Pts Care (In Minutes): 35
[2020-09-27] MEDS: MORPHINE 2 MG/ML SYR IV PRN (08:40)
[2020-09-27] MEDS ORDERED: KCL 20 MEQ/100 mL IVPB 20 MEQ/100 ML BAG IV SCH (09:00)
--- NOTE | 2020-09-27 09:17 | PN ---
Date of Progress Note: 09/27/2020 Subjective: Patient is awake, alert. Pain is little bit better. No nausea or vomiting. Objective: Vital Signs: Afebrile. Abdomen: With tenderness in the left lower quadrant no peritonitis. Laboratory Data: White count is still elevated but is down to 18,000. Assessment: Acute sigmoid diverticulitis. Recommendations: Continue IV fluid, IV antibiotics. We will start clear liquids. We will get dieta ry information for the patient. Patient requires at least 24 to 48 more hours of IV antibiotics prio r to consideration of discharge on oral. /MODL Voice ID: [id number] Report ID: [id number]
[2020-09-27 12:29] LABS: C.diff Antigen/Toxin Ag neg : Tox neg (NEG : NEG)
[2020-09-28] MEDS: PIPER/TAZO/NS 3.375gm 3.375 GM/100 ML BAG IVPB SCH ×3 (00:28→17:56)
[2020-09-28] MEDS: MORPHINE 2 MG/ML SYR IV PRN (02:52)
[2020-09-28 06:11] LABS: Absolute Lymphocytes (CBC) 1.2 K/uL (0.7-4.9); Basophils % 0.3 % (0-1.3); Hematocrit 39.7 % (39.6-49.0); Lymphocytes % 8.5 % (15.3-44.8); MPV 8.8 fL (7.6-11.3); RBC Red Blood Cell Count 4.66 M/uL (4.33-5.43)
[2020-09-28 06:27] LABS: Phosphorus 1.7 mg/dL (2.5-4.9); Potassium 3.7 mmol/L (3.5-5.1)
[2020-09-28] MEDS: NA CHLORIDE 0.9% 1,000 ML IV SCH (06:42)
[2020-09-28] MEDS ORDERED: POTASSIUM PHOS IN 0.9 % NACL 15 MMOL/250 ML BAG IV ONE (09:00)
--- NOTE | 2020-09-28 09:41 | P.PN ---
Subjective Date of Service: 09/28/20 Chief Complaint: Acute sigmoid diverticulitis, microperforation Subjective: Improving (Pain continues to improve, tolerated clear liquid diet, no nausea/vomiting. Having some loose stools. Only required pain medication once overnight) Review of Systems 10-point ROS is otherwise unremarkable Physical Examination - Vital Signs Temperature: 98.1 F Blood Pressure: 134/77 Pulse: 91 Respirations: 18 Pulse Ox (%): 99 - Physical Exam General: Alert, In no apparent distress Neck: Supple, JVD not distended Respiratory: Normal air movement (On room air) Cardiovascular: No edema, Regular rate/rhythm Gastrointestinal: Soft and benign, Non-distended, Tenderness (Very mild suprapubic) Neurological: Normal speech, Normal affect - Studies Microbiology Data (last 24 hrs): 09/26/20 09:06 Clean Catch Urine [place] Count - Final <10,000 CFU/ML. 09/26/20 09:06 Clean Catch Urine - Final MIXED [place]. Assessment & Plan Physician Review Additional Text: Acute sigmoid diverticulitis, with microperforation h/o kidney stones -advanced to CLD yesterday, advanced to FLD, dc IVF -remains afebrile, pain improving -leukocytosis down trending -general surgery consulted - will need oral antibiotics for 2 weeks, and f/u with GI for c-scope in 4-6 weeks. may need to f/u with colorectal specialist if determined he would benefit from segmental colon resection Dispo: anticipate Dc home in 24-48hrs, once leukocytosis resolved and pain improved Time Spent Managing Pts Care (In Minutes): 30
--- NOTE | 2020-09-28 10:01 | PN ---
Date of Progress Note: 09/28/2020 Subjective: The patient is awake, alert. Pain is little bit better. No nausea, vomiting. Tolerati ng clear liquids. Objective: Vital Stable: Stable. Afebrile. Abdomen: Soft, nondistended. Minimal tenderness in the left lower quadrant suprapubic region. No e vidence of peritonitis. Laboratory Data: White count is down to 14,000. Assessment: Acute sigmoid diverticulitis with microperforation. Recommendations: Continue IV antibiotics. We will slowly advance diet to full liquids today, encour age ambulation, hopefully discharge in 24-48 hours. Plan discussed with Dr. Velasquez. MITRA/CESARIO Voice ID: [id number] Report ID: [id number]
[2020-09-29] MEDS: PIPER/TAZO/NS 3.375gm 3.375 GM/100 ML BAG IVPB SCH ×2 (00:53→08:11)
[2020-09-29 08:09] LABS: Absolute Lymphocytes (CBC) 1.8 K/uL (0.7-4.9); Basophils % 0.1 % (0-1.3); Hematocrit 44.1 % (39.6-49.0); Lymphocytes % 13.4 % (15.3-44.8); MPV 8.9 fL (7.6-11.3); RBC Red Blood Cell Count 5.16 M/uL (4.33-5.43)
[2020-09-29 08:22] LABS: Magnesium 2.4 mg/dL (1.8-2.4); Phosphorus 2.2 mg/dL (2.5-4.9); Potassium 3.7 mmol/L (3.5-5.1)
[2020-09-29 08:51] VITALS: BP 154/82; TEMP 98.1
[2020-09-29] MEDS ORDERED: POTASSIUM CL SA 10 MEQ TAB PO ONE (09:00)
[2020-09-29] MEDS: POTASS/SODIUM PHOSPHATE 1 PKT POWD.PACK PO SCH ×3 (09:21→11:00)
[2020-09-29 11:41] VITALS: O2SAT 98
--- NOTE | 2020-09-30 13:25 | P.DS ---
Admission Date: 09/26/20 Discharge Date: 09/29/20 Primary Care Provider: none Disposition: ROUTINE DISCHARGE Discharge Condition: GOOD Reason for Admission: Acute sigmoid diverticulitis, microperforation Consultations: General Surgery: Dr. Stephens Procedures: CT Abd/Pelvis (09/26): Mild to moderate acute sigmoid diverticulitis. There is contained or micro perforation along the superior aspect of the involved sigmoid colon. The extraluminal free air is immediately adjacent to the involved colon. No abscess or drainable fluid collection. No distant free air. Borderline to mild fatty infiltration of the liver. C.diff (09/27): negative Problem List Acute sigmoid diverticulitis, with microperforation Hypophosphatemia h/o kidney stones Brief History of Present Illness: 45-year-old male, presented to the ED due to acute onset of severe lower abdominal pain. Symptoms began ~24hrs prior to presentation. Described as constant and dull. Alleviated/aggravated by nothing in particular. He has never had anything like this before. Mild nausea, no vomiting. Denies fevers/chills, No diarrhea, no blood in the stool. Workup notable for leukocytosis (20), normal lipase, normal LFTs, no lactic acidosis. CT abdomen/pelvis concerning for microperforation acute sigmoid diverticulitis. General surgery was consulted who recommended medical management and monitoring. Hospital Course: Patient was initially NPO, treated with empiric antibiotics, IVF, and pain med ication. Throughout his hospitalization he continued to improve. On day of discharge, he was tolerating a GI soft diet without any nausea/vomiting or pain, he reported no abdominal pain and was not requiring pain medication for at least 24 hours, and his leukocytosis had downtrended to 13.4 He was discharged home to establish with a PCP in the next week. He will follow up with Dr. Stephens in 2 weeks. He needs to get established with GI as well - recommended to have colonscopy in 4-6 weeks to determine if he will need a colectomy. He was discharged home with 14 days of cipro & flagyl and advised to continue minimal to light activity for the next 2 weeks. He was noted to have hypophosphatemia on 09/28 (1.7) which was repleted prior to discharge. Vital Signs/Physical Exam: Temp Pulse Resp BP Pulse Ox 98.1 F 77 18 154/82 H 95 09/29/20 08:00 09/29/20 08:00 09/29/20 08:00 09/29/20 08:00 09/29/20 08:00 General: Alert, In no apparent distress HEENT: Sclerae nonicteric Respiratory: Clear to auscultation bilaterally, Normal air movement Cardiovascular: No edema, Regular rate/rhythm Gastrointestinal: Soft and benign, Non-distended, No tenderness Musculoskeletal: No tenderness Integumentary: No rashes Neurological: Normal speech, Normal affect Laboratory Data at Discharge: WBC 13.4 K/uL (4.3-10.9) H 09/29/20 07:40 Hgb 14.6 g/dL (13.6-17.9) 09/29/20 07:40 Hct 44.1 % (39.6-49.0) 09/29/20 07:40 Plt Count 315 K/uL (152-406) D 09/29/20 07:40 PT 15.6 SECONDS (9.5-12.5) H 09/27/20 05:34 INR 1.33 09/27/20 05:34 Sodium 139 mmol/L (136-145) 09/29/20 07:40 Potassium 3.7 mmol/L (3.5-5.1) 09/29/20 07:40 BUN 10 mg/dL (7-18) 09/29/20 07:40 Creatinine 0.98 mg/dL (0.55-1.3) 09/29/20 07:40 Glucose 103 mg/dL (74-106) 09/29/20 07:40 Phosphorus 2.2 mg/dL (2.5-4.9) L 09/29/20 07:40 Magnesium 2.4 mg/dL (1.8-2.4) 09/29/20 07:40 Total Bilirubin 1.4 mg/dL (0.2-1.0) H 09/27/20 05:34 AST 14 U/L (15-37) L 09/27/20 05:34 ALT 29 U/L (12-78) 09/27/20 05:34 Alkaline Phosphatase 68 U/L (45-117) 09/27/20 05:34 Lipase 27 U/L (73-393) L 09/26/20 09:27 Home Medications: Ciprofloxacin HCl [Cipro 500 MG Tablet] 500 mg PO BID 14 Days #28 tab 09/29/20 metroNIDAZOLE [Flagyl] 500 mg PO Q8H 14 Days #42 tablet 09/29/20 New Medications: Ciprofloxacin HCl [Cipro 500 MG Tablet] 500 mg PO BID 14 Days #28 tab metroNIDAZOLE [Flagyl] 500 mg PO Q8H 14 Days #42 tablet Patient Discharge Instructions: Follow up with PCP within 1 week. You will need to see a senior linux engineer in 4-6 weeks for a colonoscopy. Follow up with Dr. Stephens in 2 weeks if you need a referral for Gastroenterology. Medications on discharge. Ciprofloxacin and metronidazole for 14 days. May return to work with very light duty restrictions only. Follow up with PCP and/or Dr. Stephens for further clearance to return to work without any restrictions - likely in 2 weeks. Followup: Unknown,U [Primary Care Provider] - Time spent managing pt's care (in minutes): 35
== END 2020-09-29 11:44 | disposition home or self-care (01) | DRG 392 ==
LOC: ER 08:36 → ERHOLD 12:27 → 2ND 14:57
PROVIDERS: ADMIT Hospitalist; ATTEND Hospitalist
DX: K57.20 Diverticulitis of large intestine with perforation and abscess without bleeding (principal); E83.39 Other disorders of phosphorus metabolism; D72.829 Elevated white blood cell count, unspecified; Z88.8 Allergy status to other drugs, medicaments and biological substances
CPT/HCPCS: 36415; 74177; 80048; 80053; 80076; 81003; 82565; 83605; 83690; 83735; 84100; 85025; 85610; 87086; 87088; 87324; 87449; 94760; 96365; 96367; 99285; J0744; J2270; J2405; J2543; J3480; J7030; Q9967